=== PATIENT | male | born 1995 | race Caucasian/White ===

== ENCOUNTER → 2019-03-24 | Outpatient (CLI) | payer OTHER ==
[2019-03-24 12:02] LABS: PLATELET COUNT 301 x10^3mcL (130-400); RED CELL DISTRIBUTION WIDTH 13.6 % (11.5-14.5)
[2019-03-24 12:11] LABS: CHLORIDE SERUM 104 mmol/L (98-107); POTASSIUM SERUM 3.8 mmol/L (3.5-5.1); SODIUM SERUM 142 mmol/L (136-145)
[2019-03-24 12:12] LABS: MONOCYTE 7 % (0-7); SEGMENTED NEUTROPHILS 49 % (37-75)
[2019-03-24 12:14] LABS: rbc morphology (normal/abnorm) NORMAL (NORMAL)
[2019-03-24 12:18] LABS: ALBUMIN 4.2 g/dL (3.4-5.0); BILIRUBIN TOTAL 0.7 mg/dL (0.20-1.00); CARBON DIOXIDE 28 mmol/L (21-32); CREATININE SERUM 1.1 mg/dL (0.7-1.3); GFR1 > 60 mL/min; GLUCOSE SERUM 99 mg/dL (74-106); TOTAL PROTEIN, SERUM 8.2 g/dL (6.4-8.2)
[2019-03-24 12:19] LABS: ALKALINE PHOSPHATASE 67 U/L (46-116); ALT/SGPT 122 U/L (16-63); AST/SGOT 60 U/L (15-37); CHOLESTEROL 217 mg/dL (<200); CHOLESTEROL/HDL RATIO 3.6; HDL CHOLESTEROL 61 mg/dL (40-60); TRIGLYCERIDES 73 mg/dL (<150)
== END | disposition home or self-care (01) ==
LOC: LB 03-18 15:41
DX: J30.9 Allergic rhinitis, unspecified (principal)

== ENCOUNTER 2019-07-11 19:12 | Emergency (ER) | payer OTHER ==
[~2019-07-11] VITALS: Ht 165.1 cm; Wt 81.6 kg
[2019-07-11 19:14] VITALS: Ht 165.1 cm; Wt 81.6 kg
[2019-07-11 19:55] LABS: BASOPHIL % 0.4 % (0-2)
[2019-07-11 20:04] LABS: PLATELET COUNT 308 x10^3mcL (130-400); RED CELL DISTRIBUTION WIDTH 13.5 % (11.5-14.5)
[2019-07-11 20:16] LABS: CALCIUM 9.1 mg/dL (8.5-10.1); CARBON DIOXIDE 26.3 mmol/L (21-32); CHLORIDE SERUM 103 mmol/L (98-107); GFR1 > 60 mL/min; GLUCOSE SERUM 130 mg/dL (74-106); SODIUM SERUM 141 mmol/L (136-145)
[2019-07-11 20:19] LABS: T3 TOTAL 1.09 ng/mL
[2019-07-11 20:35] LABS: ALBUMIN 4.4 g/dL (3.4-5.0); ALKALINE PHOSPHATASE 74 U/L (46-116); ALT/SGPT 47 U/L (16-63); AST/SGOT 39 U/L (15-37); BILIRUBIN TOTAL 0.32 mg/dL (0.20-1.00); C REACTIVE PROTEIN 0.3 mg/dL (<=0.9); TOTAL PROTEIN, SERUM 8.1 g/dL (6.4-8.2)
[2019-07-11 20:37] LABS: AMPHETAMINE QUAL UR NONE DETECTED (See below)
[2019-07-11 20:38] LABS: FREE T4 1.32 ng/dL (0.76-1.46); FREE THYROXINE INDEX 3.4 ug/dL (1.4-4.5); T4(THYROXINE) 10.1 ug/dL (4.7-13.3)
[2019-07-11 20:44] LABS: CK-MB 1.1 ng/mL (0-3.6)
[2019-07-11 20:45] LABS: UA SPECIFIC GRAVITY 1.025 (1.005-1.035)
[2019-07-11 20:46] LABS: microscopic required? YES; urine erythrocyte NEGATIVE (NEGATIVE)
[2019-07-11 20:54] LABS: ERYTHROCYTE SED RATE 10 mm/hr (0-15)
[2019-07-11 22:47] VITALS: BP 126/82
== END 2019-07-11 22:47 | disposition home or self-care (01) ==
LOC: ED 19:12
PROVIDERS: Specialist
DX: E86.0 Dehydration (principal); M62.82 Rhabdomyolysis; E87.6 Hypokalemia
CPT/HCPCS: 84439; G0480; J2405; J3475; J7030; Q0092